=== PATIENT | female | born 1995 | race Caucasian/White ===

== ENCOUNTER 2020-02-15 18:29 | Emergency (ER) | payer OTHER, SELFPAY ==
[~2020-02-15] VITALS: Ht 160 cm; Wt 72.6 kg
[2020-02-15 18:40] VITALS: Ht 160 cm; Wt 72.6 kg
[2020-02-15 19:49] LABS: BASOPHIL % 0.5 % (0-2); PLATELET COUNT 299 x10^3mcL (130-400); RED CELL DISTRIBUTION WIDTH 13.6 % (11.5-14.5)
[2020-02-15 19:55] LABS: CALCIUM 8.9 mg/dL (8.5-10.1); CARBON DIOXIDE 27.1 mmol/L (21-32); CHLORIDE SERUM 102 mmol/L (98-107); CREATININE SERUM 0.8 mg/dL (0.6-1.0); GFR1 > 60 mL/min; GLUCOSE SERUM 105 mg/dL (74-106); POTASSIUM SERUM 3.5 mmol/L (3.5-5.1); SODIUM SERUM 138 mmol/L (136-145)
[2020-02-15 20:01] LABS: ALBUMIN 4.2 g/dL (3.4-5.0); ALKALINE PHOSPHATASE 87 U/L (46-116); ALT/SGPT 27 U/L (14-59); AST/SGOT 12 U/L (15-37); BILIRUBIN TOTAL 1.04 mg/dL (0.20-1.00); LIPASE 88 IU/L (73-393)
[2020-02-15 20:04] LABS: TOTAL PROTEIN, SERUM 8.3 g/dL (6.4-8.2)
[2020-02-15 22:34] VITALS: BP 107/73
== END 2020-02-15 22:34 | disposition home or self-care (01) ==
LOC: ED 18:29
PROVIDERS: Emergency Medicine
DX: R10.13 Epigastric pain (principal); R11.0 Nausea; R50.9 Fever, unspecified
CPT/HCPCS: J2405; J7030